=== PATIENT | female | born 1970 | race Caucasian/White ===

== ENCOUNTER → 2023-01-20 14:26 | Outpatient (CLI) | payer OTHER, SELFPAY ==
--- NOTE | 2023-01-20 | DI.MG.S_ITS ---
BILATERAL DIGITAL SCREENING MAMMOGRAM 3D/2D WITH CAD: 01/20/2023 CLINICAL: Baseline exam. Routine screening. Family history of breast cancer. No prior exams were available for comparison. Both breasts are almost entirely fatty (category a/<25% glandular tissue). Current study was also evaluated with a Computer Aided Detection (CAD) system. There is a focal asymmetry with an indistinct margin in the left breast at 1 o'clock middle depth. No other significant masses, calcifications, or other findings are seen in either breast. IMPRESSION: INCOMPLETE: NEEDS ADDITIONAL IMAGING EVALUATION The focal asymmetry in the left breast is indeterminate. Additional views with possible ultrasound are recommended. Based on the Tyrer Cuzick model (a risk assessment model) the patient's lifetime risk is 4.0% and her 10 year risk is 1.1%. According to the ACR, ACS, and NCCN guidelines, an annual breast MRI exam along with mammogram is recommended if the patient's lifetime risk is 20% or greater. This exam was interpreted at Station ID: [id number]. NOTE: For mammograms, a report in lay terms will be sent to the patient. Approximately 15% of breast malignancies will not be visualized mammographically. In the management of a palpable breast mass, a negative mammogram must not discourage biopsy of a clinically suspicious lesion. Electronically Signed By: Gemma barcenas/ramos:01/20/2023 17:45:47 letter sent: Additional Imaging Needed ACR BI-RADS Category 0: Incomplete 3340F
--- NOTE | 2023-01-20 | DI.CT.S_ITS ---
PROCEDURE: CT ABDOMEN W CON INDICATIONS: ADRENAL ADENOMA TECHNIQUE: After the administration of intravenous contrast, axial sections were acquired from the lung bases to the pubic symphysis. Coronal and sagittal reformats were performed. For radiation dose reduction, the following was used: automated exposure control, adjustment of mA and/or kV according to patient size. COMPARISON:Outside Facility, , CT ABDOMEN/PELVIS WITHOUT CONTRAST, 04/01/2020, 2:00. FINDINGS: Lung bases: No pleural effusion. ABDOMEN: Liver: Unremarkable. Gallbladder: Unremarkable. Biliary ducts: Unremarkable. Pancreas: Unremarkable. Spleen: Unremarkable. Adrenal Glands: 3.1 cm right adrenal adenoma, not significantly changed. No left adrenal nodule visualized. Kidneys and Ureters: No hydronephrosis. Stomach and Bowel: Visualized large and small bowel is non-dilated. Peritoneum: No abnormal intraperitoneal fluid. No free air. Abdominal Nodes: No retroperitoneal or mesenteric adenopathy by size criteria. Vessels: Aorta and inferior vena cava are normal in size. Bones: Multilevel degenerative change of the visualized spine. IMPRESSION: No significant change in the previously demonstrated right adrenal adenoma. Dictated by: Geovanny Hardwick M.D. on 01/22/2023 at 10:19 Approved by: Geovanny Hardwick M.D. on 01/22/2023 at 10:53
== END ==
PROVIDERS: PCP Physician Assistant; Referring Provider Physician Assistant; Visit Provider Physician Assistant
DX: Z12.31 Encounter for screening mammogram for malignant neoplasm of breast (principal); Z80.3 Family history of malignant neoplasm of breast
CPT/HCPCS: 74160; 77063; 77067; Q9967

== ENCOUNTER → 2023-02-27 08:47 | Outpatient (CLI) | payer OTHER, MEDICAID, SELFPAY ==
--- NOTE | 2023-02-27 | DI.MG.S_ITS ---
UNILATERAL LEFT DIGITAL DIAGNOSTIC MAMMOGRAM 3D/2D WITH ADDITIONAL VIEWS: 02/27/2023 CLINICAL: Additional evaluation requested from prior study. Comparison is made to exam dated: 01/20/2023 mammogram - [facility]. There are scattered areas of fibroglandular density in the left breast (category b / 25%-50% glandular tissue). There is a fat containing focal asymmetry in the left breast at 1 o'clock middle depth. No other significant masses or calcifications are seen in the breast. IMPRESSION: NEGATIVE There is no mammographic evidence of malignancy. Focal asymmetry in the left breast is consistent with fibroglandular tissue and is benign. A 1 year screening mammogram is recommended. Exam findings were conveyed to the patient. Based on the Tyrer Cuzick model (a risk assessment model) the patient's lifetime risk is 6.0% and her 10 year risk is 1.6%. According to the ACR, ACS, and NCCN guidelines, an annual breast MRI exam along with mammogram is recommended if the patient's lifetime risk is 20% or greater. This exam was interpreted at Station ID: [id number]. NOTE: For mammograms, a report in lay terms will be sent to the patient. Approximately 15% of breast malignancies will not be visualized mammographically. In the management of a palpable breast mass, a negative mammogram must not discourage biopsy of a clinically suspicious lesion. Electronically Signed By: Otto Sierra M.D. [facility]/:02/27/2023 09:26:19 letter sent: Normal Exam ACR BI-RADS Category 1: Negative 3341F
== END ==
PROVIDERS: PCP Physician Assistant; Referring Provider Physician Assistant; Visit Provider Physician Assistant
DX: R92.8 Other abnormal and inconclusive findings on diagnostic imaging of breast (principal); N64.89 Other specified disorders of breast
CPT/HCPCS: 77065; G0279

== ENCOUNTER 2024-03-08 06:13 | Emergency (ER) | payer OTHER, MEDICAID, SELFPAY ==
[2024-03-08 06:20] VITALS: BP 195/93; PULSE 88; RESP 16; TEMP 36.6; O2SAT 99; BMI 31.3
--- NOTE | 2024-03-08 06:28 | ED_ITS ---
HPI - General Adult General Chief complaint: Urogenital-Female Stated complaint: uti Time Seen by Provider: 03/08/24 06:15 Source: patient Mode of arrival: Ambulatory History of Present Illness HPI narrative: 53-year-old female who is here for evaluation of 3 days of urinary frequency, urgency, foul-smelling urine, hesitancy. No fevers. No back pain. Her last urinary tract infection was approximately 1 year ago. She stated that she had a dose of Pyridium at home left over from that infection and she took it yesterday and that did seem to help her symptoms however they returned today. Related Data Previous Rx's Medication Instructions Recorded nitrofurantoin 100 mg PO Q12H 5 days #10 caps 03/08/24 monohydrate/macrocrystals 100 mg capsule (Macrobid) phenazopyridine 100 mg tablet 100 mg PO TID PRN pain 6 doses #6 03/08/24 (Pyridium) tabs Allergies Allergy/AdvReac Type Severity Reaction Status Date / Time No Known Drug Allergies Allergy Verified 03/08/24 06:25 Review of Systems Review of Systems ROS Unobtainable: All systems reviewed & are unremarkable except as noted in HPI and below Exam Initial Vital Signs Initial Vital Signs: Vital Signs Temperature 97.9 F 03/08/24 06:20 Pulse Rate 88 03/08/24 06:20 Respiratory Rate 16 03/08/24 06:20 Blood Pressure 195/93 H 03/08/24 06:20 Pulse Oximetry 99 03/08/24 06:20 Oxygen Delivery Method Room Air 03/08/24 06:20 Const General: cooperative, comfortable and No ill appearing [facility] Head: normal to inspection and normocephalic Resp Effort & Inspection: normal respiratory effort Cardio Rate: regular rate Back/Spine/Pelvis Back: No CVA tenderness Course Orders Ordered: ED Orders 03/08/24 06:22 Urine Microscopic Stat 03/08/24 06:27 Urine Culture Stat Discontinued Medications Nitrofurantoin Macrocrystals (Nitrofurantoin Er 100 Mg Capsule) 100 mg PO NOW ONE Stop: 03/08/24 06:28 Phenazopyridine HCl (Phenazopyridine 100 Mg Tablet) 100 mg PO NOW ONE Stop: 03/08/24 06:28 Vital Signs Vital signs: Vital Signs - 8 hr 03/08/24 06:20 Temperature 97.9 F Pulse Rate 88 Respiratory Rate 16 Blood Pressure 195/93 H Pulse Oximetry 99 Oxygen Delivery Method Room Air Medical Decision Making Lab Data Labs: Urine Dip Bedside Urine Glucose Negative Bedside Urine Bilirubin - Negative Bedside Urine Ketone - Negative Urine Specific [place] 1.025 Bedside Urine Occult Blood +++ Bedside Urine pH 6.0 Bedside Urine Protein ++ 100 Bedside Urine Urobilinogen - Negative Bedside Urine Nitrite - Negative Bedside Urine Leukocytes + 70 Esterase Point of care testing: Urine Dip Bedside Urine Glucose Negative Bedside Urine Bilirubin - Negative Bedside Urine Ketone - Negative Urine Specific [place] 1.025 Bedside Urine Occult Blood +++ Bedside Urine pH 6.0 Bedside Urine Protein ++ 100 Bedside Urine Urobilinogen - Negative Bedside Urine Nitrite - Negative Bedside Urine Leukocytes + 70 Esterase MDM Narrative Medical decision making narrative: History and physical and urinalysis is consistent with a urinary tract infection. Low suspicion for pyelo. He was tolerating oral intake. Is a febrile. Unremarkable vital signs. First dose of antibiotics and a dose of Pyridium given here in the emergency department. A prescription was sent to the pharmacy of her choice. There was a urine culture pending at the time of her discharge and we will contact her if we need to change any antibiotics based on this. She was given return precautions. She expressed understanding and agreement with plan. Discharge Plan Departure Patient Disposition: Home Clinical Impression: Urinary tract infection Instructions: DI for Urinary Tract Infection (UTI) Activity Restrictions/Additional Instructions: They recommend that you take the antibiotics as directed. There was a urine culture pending at the time of your discharge we will contact you if we need to change antibiotics based on this. Return to the emergency department for new or worsening symptoms. Prescriptions: New nitrofurantoin monohyd/m-cryst [Macrobid] 100 mg capsule 100 mg PO Q12H 5 Days Qty: 10 0RF Rx Instructions: must administer with a meal/food phenazopyridine [Pyridium] 100 mg tablet 100 mg PO TID PRN (Reason: pain) Qty: 6 0RF Referrals: Carin Valderrama PA-C [Primary Care Provider] - Stand Alone Forms: Patient Portal/API/Survey
[2024-03-08 06:35] LABS: Bacteria Urine Many (>30); RBC Urine 5-10/HPF (0-5/HPF); Squamous Epithelial Cell Urine 1-5 /HPF (0-5/HPF); Urine Volume Low Vol <10mL (spun); WBC Urine 30-100/HPF (0-5/HPF)
[2024-03-08 06:36] LABS: Calcium Oxalate Crystals Urine Few; Culture Indicated Urine Specimen Cultured
[2024-03-08] MEDS: NITROFURANTOIN ER 100 MG CAPSULE PO (06:38)
[2024-03-08] MEDS: PHENAZOPYRIDINE 100 MG TABLET PO (06:38)
== END 2024-03-08 06:40 | disposition home or self-care (01) ==
PROVIDERS: Emergency Provider Emergency Medicine; PCP Physician Assistant
DX: N39.0 Urinary tract infection, site not specified (principal)
CPT/HCPCS: 81003; 81015; 87077; 87086; 87186; 99283

== ENCOUNTER 2024-07-22 08:01 | Emergency (ER) | payer OTHER, SELFPAY ==
[2024-07-22] VITALS (14 sets, daily range): BP systolic 106–165; BP diastolic 59–81; PULSE 67–125; RESP 16; TEMP 36.4; O2SAT 93–98; BMI 30.2
--- NOTE | 2024-07-22 08:09 | ED_ITS ---
HPI - Abdominal Pain General Chief Complaint: Abdominal Pain Stated Complaint: abd pain Time Seen by Provider: 07/22/24 08:04 History of Present Illness HPI narrative: Patient 54-year-old female history of tuj-pvklbuu-dzkygsimn diabetes presenting to day with lower abdominal discomfort. She reports it has been ongoing for the last 3-4 days. She was passing foul-smelling gas but no real bowel movement. This morning she started throwing up. Still feels a little bit nauseous. Has some left lower back pain. Does not report that pain is radiating to the front. No prior history of kidney stones. Denying any sort of chest pain. Only abdominal surgery is a . Related Data Previous Rx's Medication Instructions Recorded phenazopyridine 100 mg tablet 100 mg PO TID PRN pain 6 doses #6 03/08/24 (Pyridium) tabs amoxicillin 875 mg-potassium 1 tab PO BID #20 tabs 07/22/24 clavulanate 125 mg tablet ondansetron 4 mg disintegrating 4 mg PO Q8H PRN nausea and 07/22/24 tablet vomiting #10 tabs Allergies Allergy/AdvReac Type Severity Reaction Status Date / Time No Known Drug Allergies Allergy Verified 03/08/24 06:25 Exam Initial Vital Signs Initial Vital Signs: Vital Signs Pulse Rate 125 H 07/22/24 08:08 Pulse Oximetry 97 07/22/24 08:08 GENERAL: Alert 54-year-old female and in no acute distress. HEENT: Head atraumatic,EOMI, pupils reactive, face symmetric, moist mucous membranes CARDIOVASCULAR: Regular rate and rhythm without murmurs, rubs or gallops. RESPIRATORY: Breath sounds equal bilaterally, no wheezes rales or rhonchi. ABDOMEN: Soft, abdominal tenderness all across no significant localization or peritoneal signs : No significant flank pain or CVA tenderness EXTREMITIES: Normal range of motion, no clubbing or edema. Neurovascularly intact NEUROLOGICAL: Alert and oriented x4.Normal gait and speech. Cranial nerves II through XII grossly intact. SKIN: Warm, dry, no laceration, no petechiae, no rashes or lesions. Course Orders Ordered: ED Orders 07/22/24 08:14 CT abdomen pelvis w con Stat Comprehensive Metabolic Panel Stat Lipase Stat 07/22/24 08:18 Complete Blood Count AUTO DIFF Stat 07/22/24 10:02 Lactate (Lactic Acid) Stat Discontinued Medications Sodium Chloride (Normal Saline 0.9%) 1,000 mls @ 1,000 mls/hr IV BOLUS ONE Stop: 07/22/24 09:12 Last Infusion: 07/22/24 10:21 Dose: Infused Documented By: Admin: 07/22/24 09:04 Dose: 1,000 mls/hr Documented By: MERRY Sodium Chloride (Normal Saline 0.9%) 1,000 mls @ 1,000 mls/hr IV BOLUS ONE Stop: 07/22/24 10:42 Last Admin: 07/22/24 09:59 Dose: Not Given Documented By: FERN Sodium Chloride (Normal Saline 0.9%) 1,000 mls @ 1,000 mls/hr IV BOLUS ONE Stop: 07/22/24 11:43 Last Infusion: 07/22/24 12:01 Dose: Infused Documented By: Admin: 07/22/24 10:55 Dose: 1,000 mls/hr Documented By: MERRY Sodium Chloride (Normal Saline 0.9%) 1,000 mls @ 500 mls/hr IV BOLUS ONE Stop: 07/22/24 12:48 Last Admin: 07/22/24 10:52 Dose: Not Given Documented By: MERRY Ketorolac Tromethamine (Ketorolac 30 Mg/Ml Vial) 15 mg IV NOW ONE Stop: 07/22/24 08:14 Last Admin: 07/22/24 09:05 Dose: 15 mg Documented By: MERRY Metoclopramide HCl (Metoclopramide 10 Mg/2 Ml Inj) 10 mg IV NOW ONE Stop: 07/22/24 11:22 Last Admin: 07/22/24 11:58 Dose: 10 mg Documented By: MERRY Ondansetron HCl (Ondansetron 4 Mg/2 Ml Inj) 4 mg IV NOW ONE Stop: 07/22/24 08:14 Last Admin: 07/22/24 09:06 Dose: 4 mg Documented By: MERRY Vital Signs Vital signs: Vital Signs - 8 hr 07/22/24 09:00 07/22/24 09:12 07/22/24 09:12 Pulse Rate 81 79 Blood Pressure 115/71 Pulse Oximetry 95 96 07/22/24 09:30 07/22/24 09:30 07/22/24 10:00 Pulse Rate 77 Blood Pressure 106/66 117/62 Pulse Oximetry 95 07/22/24 10:00 07/22/24 10:30 07/22/24 10:30 Pulse Rate 80 70 Blood Pressure 112/61 Pulse Oximetry 93 94 07/22/24 11:00 07/22/24 11:00 07/22/24 11:11 Pulse Rate 67 Blood Pressure 116/63 128/64 Pulse Oximetry 97 07/22/24 11:11 07/22/24 11:30 07/22/24 11:30 Pulse Rate 71 68 Blood Pressure 107/59 L Pulse Oximetry 97 97 07/22/24 12:00 07/22/24 12:00 07/22/24 12:30 Pulse Rate 67 71 Blood Pressure 115/65 Pulse Oximetry 98 97 07/22/24 12:30 Pulse Rate Blood Pressure 119/65 Pulse Oximetry MDM - Abdominal Pain Lab Data 07/22/24 08:18 07/22/24 08:14 Labs: Lab Results 07/22/24 07/22/24 07/22/24 Range/Units 08:14 08:18 10:02 WBC 12.5 H (4.5-11.0) X10^3/uL RBC 4.49 (4.0-5.2) X10^6/uL Hgb 14.9 (12.0-16.0) g/dL Hct 44.4 (36-46) % MCV 99.0 (80-100) fL MCH 33.3 (26-34) PG MCHC 33.6 (30-36) % RDW 12.8 (11.6-14.8) % Plt Count 268 (150-400) X10^3/uL Neut % (Auto) 77.3 H (50-75) % Lymph % (Auto) 8.7 L (25-40) % Dillon % (Auto) 12.1 (3-14) % Eos % (Auto) 1.6 L (2-4) % Baso % (Auto) 0.3 (0-2) % Neut # (Auto) 9700 H (4655-8562) /uL Lymph # (Auto) 1100 (5192-3833) /uL Dillon # (Auto) 1500 H (0-900) /uL Eos # (Auto) 200 (0-450) /uL Baso # (Auto) 0 (0-100) /uL Sodium 137 (137-145) mmol/L Potassium 4.5 (3.4-5.1) mmol/L Chloride 107 (98-107) mmol/L Carbon Dioxide 14 L (22-32) mmol/L BUN 17 (7-17) mg/dL Creatinine 0.48 L (0.52-1.04) mg/dL Estimated GFR > 60 (>60) mL/min BUN/Creatinine Ratio 35.4 H (6-22) Glucose 205 H (70-100) mg/dL Lactate 2.8 H (0.7-2.1) mmol/L Calcium 9.1 (8.4-10.2) mg/dL Total Bilirubin 0.7 (0.2-1.3) mg/dL AST 46 H (14-36) IU/L ALT 26 (<35) IU/L Alkaline Phosphatase 104 (38-126) U/L Total Protein 7.4 (6.3-8.2) g/dL Albumin 4.2 (3.5-5.0) g/dL Globulin 3.2 (1.7-4.1) g/dL Albumin/Globulin Ratio 1.3 (1.0-2.8) Lipase 65 (23-300) U/L 03/14/25 Range/Units 11:50 WBC (4.5-11.0) X10^3/uL RBC (4.0-5.2) X10^6/uL Hgb (12.0-16.0) g/dL Hct (36-46) % MCV (80-100) fL MCH (26-34) PG MCHC (30-36) % RDW (11.6-14.8) % Plt Count (150-400) X10^3/uL Neut % (Auto) (50-75) % Lymph % (Auto) (25-40) % Dillon % (Auto) (3-14) % Eos % (Auto) (2-4) % Baso % (Auto) (0-2) % Neut # (Auto) (3506-7903) /uL Lymph # (Auto) (2245-0564) /uL Dillon # (Auto) (0-900) /uL Eos # (Auto) (0-450) /uL Baso # (Auto) (0-100) /uL Sodium (137-145) mmol/L Potassium (3.4-5.1) mmol/L Chloride (98-107) mmol/L Carbon Dioxide (22-32) mmol/L BUN (7-17) mg/dL Creatinine (0.52-1.04) mg/dL Estimated GFR (>60) mL/min BUN/Creatinine Ratio (6-22) Glucose (70-100) mg/dL Lactate 1.8 (0.7-2.1) mmol/L Calcium (8.4-10.2) mg/dL Total Bilirubin (0.2-1.3) mg/dL AST (14-36) IU/L ALT (<35) IU/L Alkaline Phosphatase (38-126) U/L Total Protein (6.3-8.2) g/dL Albumin (3.5-5.0) g/dL Globulin (1.7-4.1) g/dL Albumin/Globulin Ratio (1.0-2.8) Lipase (23-300) U/L Point of care testing: Urine Dip Bedside Urine Glucose Negative Bedside Urine Bilirubin - Negative Bedside Urine Ketone - Negative Urine Specific [place] 1.005 Bedside Urine Occult Blood - Negative Bedside Urine pH 6.0 Bedside Urine Protein - Negative Bedside Urine Urobilinogen - Negative Bedside Urine Nitrite - Negative Bedside Urine Leukocytes - Negative Esterase Imaging Data CT scan - abdomen/pelvis: Radiologist's Impression: PROCEDURE: CT ABDOMEN PELVIS W CON INDICATIONS: ab pain TECHNIQUE: After the administration of intravenous contrast, axial sections acquired from the lung bases to the pubic symphysis. Coronal and sagittal reformats were performed. For radiation dose reduction, the following was used: automated exposure control, adjustment of mA and/or kV according to patient size. COMPARISON: [facility], CT, CT ABDOMEN W CON, 01/20/2023, 15:09. FINDINGS: Image quality: Diagnostic. Lower Chest: No significant findings. ABDOMEN: Liver: No solid mass. Gallbladder: No radiopaque gallstones or wall thickening. Biliary ducts: No biliary dilation. Pancreas: No ductal dilation. Spleen: Size is within normal limits. Adrenal Glands: Stable 3.1 centimeter right adrenal nodule compared with 2020, statistically benign. Kidneys and Ureters: No hydronephrosis. No solid mass. No complex renal cystic lesion which requires follow up. Stomach and Bowel: Prominent mucosal folds of the small bowel, with associated wall thickening. Mild mesenteric edema. Peritoneum: No abnormal intraperitoneal fluid. No free air. Ventral Wall: No significant ventral hernia. Abdominal Nodes: No retroperitoneal or mesenteric adenopathy by size criteria. Vessels: Aorta and inferior vena cava are normal in size. PELVIS: Pelvic Organs: Unremarkable. Bladder: No bladder wall thickening, accounting for underdistention. Pelvic Nodes: No enlarged lymph nodes. Miscellaneous: No inguinal hernias are seen. Bones: No aggressive osseous abnormality. IMPRESSION: Enteritis. Dictated by: Laci Esquivel M.D. on 07/22/2024 at 8:50 MDM Narrative Medical decision making narrative: MDM CC: Abdominal bloating Complicating co-morbidities: None Data collected from: Patient and Medical records reviewed: Previous ED visit February 2024 but minimal record Differential considered: Nephrolithiasis diverticulitis bowel obstruction gastroenteritis Exam documented above, pertinent findings include: Abdomen is soft nondistended minimal pain no significant flank pain Lab Test results independently reviewed as above. Pertinent findings: CBC does show leukocytosis of 12 without anemia CMP normal sodium and potassium bicarb is 14 anion gap of 16 BUN 17 creatinine 0.48 Electrolytes bilirubin within normal limits Lactate 2.8 with repeat 1.8 Imaging studies independently reviewed: CT abdomen pelvis shows enteritis Treatments: IV fluids x2L Toradol Zofran Re-evaluations: Patient was feeling a little bit better after Toradol and IV fluids no longer nauseated Discussion: 54-year-old female presenting today with abdominal discomfort and bloating. She is found to have some leukocytosis of 12.5 bicarb of 14 with small anion gap of 16 she was a gsx-xklldvk-erjhvdgrr diabetic glucose is 205. Likely due to metabolic acidosis lactate 2.8 with repeat 1.8. Pain is not out of proportion do not think mesenteric ischemia is likely. She does not have any diarrhea or bloody stool at time. No further vomiting tolerating fluids. Discussed with patient antibiotics we will start her on some mountain. Discharge Plan Departure Patient Disposition: Home Clinical Impression: Gastroenteritis Instructions: DI for Viral Gastroenteritis -- Adult Activity Restrictions/Additional Instructions: *You have been diagnosed with gastroenteritis *What to do: At this time stay hydrated be sure you are drinking electrolyte fluids with sugar and salt such as Gatorade or Pedialyte *Continue to take medications as directed Tylenol 650 mg every 4-6 hours for bqxo-zd-rrnagbau pain Motrin 600 mg every 6 hours for ewad-ny-izdwrtre pain Zofran 4 mg every 8 hours for nausea or vomiting Augmentin 875 mg twice a day for 7 days *Follow up with your primary care provider in 2-3 days or call [phone] *Return to ER if you should have increasing abdominal pain bloody stool persistent vomiting or any new, worsening or concerning symptoms Prescriptions: New ondansetron 4 mg tablet,disintegrating 4 mg PO Q8H PRN (Reason: nausea and vomiting) Qty: 10 0RF amoxicillin-pot clavulanate 875-125 mg tablet 1 tab PO BID Qty: 20 0RF No Action phenazopyridine [Pyridium] 100 mg tablet 100 mg PO TID PRN (Reason: pain) Qty: 6 0RF Referrals: Carin Valderrama PA-C [Primary Care Provider] - Stand Alone Forms: Patient Portal/API/Survey
--- NOTE | 2024-07-22 08:14 | DI.CT.S_ITS ---
PROCEDURE: CT ABDOMEN PELVIS W CON INDICATIONS: ab pain TECHNIQUE: After the administration of intravenous contrast, axial sections acquired from the lung bases to the pubic symphysis. Coronal and sagittal reformats were performed. For radiation dose reduction, the following was used: automated exposure control, adjustment of mA and/or kV according to patient size. COMPARISON: [facility], CT, CT ABDOMEN W CON, 01/20/2023, 15:09. FINDINGS: Image quality: Diagnostic. Lower Chest: No significant findings. ABDOMEN: Liver: No solid mass. Gallbladder: No radiopaque gallstones or wall thickening. Biliary ducts: No biliary dilation. Pancreas: No ductal dilation. Spleen: Size is within normal limits. Adrenal Glands: Stable 3.1 centimeter right adrenal nodule compared with 2020, statistically benign. Kidneys and Ureters: No hydronephrosis. No solid mass. No complex renal cystic lesion which requires follow up. Stomach and Bowel: Prominent mucosal folds of the small bowel, with associated wall thickening. Mild mesenteric edema. Peritoneum: No abnormal intraperitoneal fluid. No free air. Ventral Wall: No significant ventral hernia. Abdominal Nodes: No retroperitoneal or mesenteric adenopathy by size criteria. Vessels: Aorta and inferior vena cava are normal in size. PELVIS: Pelvic Organs: Unremarkable. Bladder: No bladder wall thickening, accounting for underdistention. Pelvic Nodes: No enlarged lymph nodes. Miscellaneous: No inguinal hernias are seen. Bones: No aggressive osseous abnormality. IMPRESSION: Enteritis. Dictated by: Laci Esquivel M.D. on 07/22/2024 at 8:50 Approved by: Laci Esquivel M.D. on 07/22/2024 at 8:57
[2024-07-22 08:27] LABS: Add Manual Diff / Slide Review NO; Basophils Absolute Auto 0 /uL (0-100); Basophils Percent Auto 0.3 % (0-2); Eosinophils Absolute Auto 200 /uL (0-450); Eosinophils Percent Auto 1.6 % (2-4); Hematocrit 44.4 % (36-46); Hemoglobin 14.9 g/dL (12.0-16.0); Lymphocytes Absolute Auto 1100 /uL (1100-4500); Lymphocytes Percent Auto 8.7 % (25-40); Mean Corpuscular HGB Conc 33.6 % (30-36); Mean Corpuscular Hemoglobin 33.3 PG (26-34); Monocytes Absolute Auto 1500 /uL (0-900); Monocytes Percent Auto 12.1 % (3-14); Neutrophils Absolute Auto 9700 /uL (1500-7000); Neutrophils Percent Auto 77.3 % (50-75); Platelet Count 268 X10^3/uL (150-400); Red Blood Cell Count 4.49 X10^6/uL (4.0-5.2); Red Cell Distribution Width 12.8 % (11.6-14.8); White Blood Cell Count 12.5 X10^3/uL (4.5-11.0)
[2024-07-22] MEDS: SODIUM CHLORIDE 0.9% 1,000 ML 1000 ML IV ×2 (09:04→10:55)
[2024-07-22] MEDS: KETOROLAC 30 MG/ML VIAL 15 MG IV (09:05)
[2024-07-22] MEDS: ONDANSETRON 4 MG/2 ML INJ IV (09:06)
[2024-07-22 09:41] LABS: Alanine Aminotransferase 26 IU/L (<35); Albumin 4.2 g/dL (3.5-5.0); Albumin Globulin Ratio 1.3 (1.0-2.8); Alkaline Phosphatase 104 U/L (38-126); Aspartate Aminotransferase 46 IU/L (14-36); BUN Creatinine Ratio 35.4 (6-22); Bilirubin Total 0.7 mg/dL (0.2-1.3); Blood Urea Nitrogen 17 mg/dL (7-17); Calcium 9.1 mg/dL (8.4-10.2); Carbon Dioxide 14 mmol/L (22-32); Chloride 107 mmol/L (98-107); Estimated Glomerular Filt Rate > 60 mL/min (>60); Globulin 3.2 g/dL (1.7-4.1); Glucose 205 mg/dL (70-100); HEMOLYSIS 63 (0-50); Lipase 65 U/L (23-300); Potassium 4.5 mmol/L (3.4-5.1); Sodium 137 mmol/L (137-145); Total Protein 7.4 g/dL (6.3-8.2)
[2024-07-22 10:27] LABS: Lactate (Lactic Acid) 2.8 mmol/L (0.7-2.1)
[2024-07-22 11:43] LABS: Reflexed Lactate in 2 Hours Y
[2024-07-22] MEDS: METOCLOPRAMIDE 10 MG/2 ML INJ IV (11:58)
[2024-07-22 12:09] LABS: Lactate 2HR (Lactic Acid Rflx) 1.8 mmol/L (0.7-2.1)
== END 2024-07-22 12:35 | disposition home or self-care (01) ==
PROVIDERS: Emergency Provider Emergency Medicine; PCP Physician Assistant
DX: K52.9 Noninfective gastroenteritis and colitis, unspecified (principal); R11.2 Nausea with vomiting, unspecified; M54.50 Low back pain, unspecified
CPT/HCPCS: 36415; 74177; 80053; 81003; 83605; 83690; 85025; 96361; 96374; 96375; 99284; J1885; J2405; J2765; Q9967